=== PATIENT | male | born 1980 | race Caucasian/White ===

== ENCOUNTER 2024-12-21 08:56 | Outpatient (CLI) | payer SELFPAY | END 2024-12-21 08:57 | disposition home or self-care (01) | LOC: CSHSLEEP 08:56 | PROVIDERS: ATTEND Family Medicine | DX: G47.33 Obstructive sleep apnea (adult) (pediatric) (principal); E66.9 Obesity, unspecified; Z68.39 Body mass index [BMI] 39.0-39.9, adult | CPT/HCPCS: 95811 ==